=== PATIENT | female | born 1980 | race African-American/Black ===

== ENCOUNTER 2016-11-01 06:29 | Day surgery (SDC) | payer OTHER ==
[2016-09-28 16:11] VITALS: BMI 30.4
[2016-11-01] MEDS ORDERED: MIDAZOLAM HCL 2 MG/2 ML SINGLE DOSE VIAL ONE (07:48)
[2016-11-01] MEDS ORDERED: PROPOFOL 20 ML ONE ×3 (07:49→08:58)
[2016-11-01] MEDS ORDERED: DEXAMETHASONE SOD PHOSPHATE 4 MG/1 ML VIAL ONE ×2 (07:49→07:50)
[2016-11-01] MEDS ORDERED: LIDOCAINE HCL/PF 2% SDV 5ML VIAL ONE (07:54)
--- NOTE | 2016-11-01 08:15 | HP ---
Admitting History and Physical - Admission Chief Complaint: Heavy menses History of Present Illness: 36 yo Para 2, with h/o prolonged and heavy menses, is Pre op for endometrial ablation. History Source: Patient Limitations to Obtaining History: No Limitations - Past Medical History ...LMP: 09/12/16 ...: No ...Para: 2 - Past Surgical History Past Surgical History: Yes: None - Smoking History Smoking history: Never smoked Have you smoked in the past 12 months: No - Alcohol/Substance Use Hx Alcohol Use: No History of Substance Use: reports: None - Social History Usual Living Arrangement: Yes: Alone History of Recent Travel: No Home Medications - Allergies Allergies/Adverse Reactions: Allergies Allergy/AdvReac Type Severity Reaction Status Date / Time Penicillins Allergy Unknown Verified 05/25/13 08:52 shellfish derived Allergy Verified 05/27/13 17:50 milk AdvReac Mild Verified 09/28/16 16:11 - Home Medications Home Medications: Ambulatory Orders Cholecalciferol (Vitamin D3) [Vitamin D3] 50,000 unit PO WEEKLY 09/28/16 Ferrous Sulfate [Feosol] 325 mg PO DAILY 09/28/16 Family Disease History - Family Disease History Family History: Unremarkable Review of Systems - Review of Systems Constitutional: reports: No Symptoms Eyes: reports: No Symptoms HENT: reports: No Symptoms Neck: reports: No Symptoms Cardiovascular: reports: No Symptoms Respiratory: reports: No Symptoms Gastrointestinal: reports: No Symptoms Genitourinary: reports: No Symptoms Breasts: reports: No Symptoms Reported Musculoskeletal: reports: No Symptoms Integumentary: reports: No Symptoms Neurological: reports: No Symptoms Endocrine: reports: No Symptoms Hematology/Lymphatic: reports: No Symptoms Psychiatric: reports: No Symptoms Pain Intensity: 0 Physical Examination Vital Signs: Vital Signs Temperature 97.6 F 11/01/16 06:58 Pulse Rate 89 11/01/16 06:58 Respiratory Rate 20 11/01/16 06:58 Blood Pressure 127/80 11/01/16 06:58 O2 Sat by Pulse Oximetry (%) 98 11/01/16 06:58 Constitutional: Yes: Well Nourished Eyes: Yes: Conjunctiva Clear HENT: Yes: Atraumatic Neck: Yes: Supple, Trachea Midline Cardiovascular: Yes: Regular Rate and Rhythm Respiratory: Yes: Regular, CTA Bilaterally Gastrointestinal: Yes: Normal Bowel Sounds Neurological: Yes: Alert, Oriented ...Motor Strength: WNL Psychiatric: Yes: Alert, Oriented Problem List - Problems (1) Menorrhagia with regular cycle Code(s): N92.0 - EXCESSIVE AND FREQUENT MENSTRUATION WITH REGULAR CYCLE Assessment/Plan Menorrhagia Pre op for Hysteroscopic endometrial ablation Consent signed Anesthesia to see patient
--- NOTE | 2016-11-01 08:16 | OP ---
Operative Note - Note: Operative Date: 11/01/16 Pre-Operative Diagnosis: Menorrhagia Operation: Hysteroscopic endometrial ablation Post-Operative Diagnosis: Same as Pre-op Surgeon: Rochelle Ordaz Anesthesia: General Estimated Blood Loss (mls): 5 Operative Report Dictated: Yes
[2016-11-01] MEDS ORDERED: ACETAMINOPHEN INJECTION 100 ML IVPB ONE (09:31)
[2016-11-01] MEDS ORDERED: ONDANSETRON 4 MG/2 ML VIAL IVPUSH PRN (10:07)
[2016-11-01] MEDS ORDERED: IBUPROFEN 800 MG/8 ML IJ IVPB PRN (10:07)
[2016-11-01] MEDS ORDERED: oxyCODONE HCL 5 MG TABLET PO PRN (10:07)
[2016-11-01 12:41] VITALS: BP 119/73; PULSE 92; TEMP 98.2
--- NOTE | 2016-12-12 21:06 | OP ---
DATE OF OPERATION: 11/01/2016 PREOPERATIVE DIAGNOSIS: Menorrhagia. POSTOPERATIVE DIAGNOSIS: Menorrhagia. PROCEDURE: Hysteroscopic endometrial ablation. SURGEON: Rochelle Ordaz MD ANESTHESIA: General. COMPLICATION: None. ESTIMATED BLOOD LOSS: 5 mL. PROCEDURE: The patient was taken to the operating room, where general anesthesia was administered. Patient was then placed in lithotomy position. She was then prepped and draped in appropriate sterile fashion. A weighted speculum was placed in the vagina. The anterior lip of the cervix was grasped with a single-tooth tenaculum. Then the hysteroscope was then inserted into the uterine cavity. The machine was then activated and hysteroscopy started and the cavity was visualized. There was no fibroid noted, no polyps noted. Upon completion of the hysteroscopy, the nurse pushed the button to start the ablation procedure. Then appropriate of the cervix was obtained using 2 Sweethearts to the posterior lip of the cervix and 2 wet gauzes placed on the posterior vagina. Once procedure started and the temperature adriano, a blanching of the cavity was noted. At the end of the procedure, the instruments were removed. The patient was taken out of lithotomy position. She was taken to PACU in stable condition. ROCHELLE ORDAZ M.D. [id number] MTDD
== END 2016-11-01 12:45 | disposition home or self-care (01) ==
LOC: JASU-SURG 06:29
PROVIDERS: ATTEND Obstetrics & Gynecology
PROC: 0U5B8ZZ Destruction of Endometrium, Via Natural or Artificial Opening Endoscopic (ICD-10-PCS; principal; 2016-11-01 08:00)
DX: N92.0 Excessive and frequent menstruation with regular cycle (principal)
CPT/HCPCS: 84703; 94760

== ENCOUNTER → 2018-01-10 | Day surgery (SDC) | payer OTHER ==
--- NOTE | 2018-01-11 16:34 | PATH ---
Cytology Non-Gynecological Report Patient Name: HEENA FAGAN [facility]. Rec. #: [id number] /Age/Gender: 1980 (Age: 37) / F Account: [id number] Location: Taken: 01/10/2018 Received: 01/10/2018 Reported: 01/11/2018 Physicians: Allen Bonner M.D. Specimen(s) Received LEFT THYROID FNA Clinical History Left thyroid nodule, 2.8 x 1.69 x 1.18 cm Final Diagnosis THYROID, LEFT, FINE NEEDLE ASPIRATION: SATISFACTORY FOR EVALUATION. BETHESDA CLASS II: BENIGN. CYTOLOGIC FINDINGS ARE CONSISTENT WITH A BENIGN FOLLICULAR NODULE. SMALL FOLLICULAR CELLS, FEW MACROPHAGES AND COLLOID PRESENT. Electronically Signed Holly Oh M.D. Gross Description Received are eight direct smears, four of which are air-dried and Diff-Quik stained, and four of which are alcohol fixed and Pap stained. Also received is 20 ml of bloody formalin from which one cellblock is prepared.
== END | disposition home or self-care (01) ==
LOC: JRADIR 09:55
PROVIDERS: ATTEND Family Medicine
PROC: 0G9G3ZX Drainage of Left Thyroid Gland Lobe, Percutaneous Approach, Diagnostic (ICD-10-PCS; principal; 2018-01-10)
DX: E04.1 Nontoxic single thyroid nodule (principal)
CPT/HCPCS: 76942

== ENCOUNTER → 2018-01-29 | Day surgery (SDC) | payer OTHER ==
--- NOTE | 2018-01-30 13:02 | PATH ---
Cytology Non-Gynecological Report Patient Name: HEENA FAGAN [facility]. Rec. #: [id number] /Age/Gender: 1980 (Age: 38) / F Account: [id number] Location: RADIOLOGY Taken: 01/29/2018 Received: 01/29/2018 Reported: 01/30/2018 Physicians: Allen Bonner M.D. Specimen(s) Received RIGHT THYROID FNA Clinical History Right thyroid nodule, 1.28 x 0.87 x 1.10 cm Final Diagnosis THYROID, RIGHT, FINE NEEDLE ASPIRATION: SATISFACTORY FOR EVALUATION. BETHESDA CLASS II: BENIGN. CYTOLOGIC FINDINGS ARE CONSISTENT WITH A BENIGN FOLLICULAR NODULE WITH POST-HEMORRHAGIC CHANGE. FOLLICULAR CELLS WITH FOCAL REACTIVE CHANGES IN A BACKGROUND OF COLLOID AND SCATTERED HEMOSIDERIN-LADEN MACROPHAGES. Electronically Signed Holly Oh M.D. Gross Description Received are eight direct smears, four of which are air-dried and Diff-Quik stained, and four of which are alcohol fixed and Pap stained. Also received is 20 ml of bloody formalin from which one cellblock is prepared.
== END | disposition home or self-care (01) ==
LOC: JRADIR 09:10
PROVIDERS: ATTEND Family Medicine
PROC: 0G9H3ZX Drainage of Right Thyroid Gland Lobe, Percutaneous Approach, Diagnostic (ICD-10-PCS; principal; 2018-01-29)
DX: E04.1 Nontoxic single thyroid nodule (principal)
CPT/HCPCS: 76942; 88173; 88305-TC

== ENCOUNTER 2018-10-14 05:06 | Day surgery (SDC) | payer OTHER ==
[2018-10-14] MEDS ORDERED: IBUPROFEN 800 MG/8 ML IJ IVPB PRN (07:21)
[2018-10-14] MEDS ORDERED: ACETAMINOPHEN 325 MG TABLET (FP) PO PRN (07:21)
[2018-10-14] MEDS ORDERED: IBUPROFEN 600 MG TABLET (FP) PO PRN (07:21)
--- NOTE | 2018-10-14 07:21 | HP ---
History & Physical Update - History History: No Change - Physical Physical: No Change - Assessment Assessment: No Change - Plan Plan: No Change (No change in HP)
[2018-10-14] MEDS ORDERED: LACTATED RINGERS SOLUTION 1,000 ML IV SCH ×2 (07:30→13:45)
[2018-10-14] MEDS ORDERED: MIDAZOLAM HCL 2 MG/2 ML SINGLE DOSE VIAL ONE (12:06)
[2018-10-14] MEDS ORDERED: PROPOFOL 20 ML ONE (12:35)
[2018-10-14] MEDS ORDERED: CLINDAMYCIN 600 MG PREMIX BAG IVPB ONE (12:42)
[2018-10-14] MEDS ORDERED: LIDOCAINE HCL/PF 2% SDV 5ML VIAL ONE (12:48)
[2018-10-14] MEDS ORDERED: KETOROLAC TROMETHAMINE 30 MG/1 ML VIAL ONE (12:48)
[2018-10-14] MEDS ORDERED: CLINDAMYCIN PHOSPHATE 600 MG/4 ML VIAL ONE (12:48)
[2018-10-14] MEDS ORDERED: DEXAMETHASONE SOD PHOSPHATE 4 MG/1 ML VIAL ONE (12:48)
[2018-10-14] MEDS ORDERED: oxyCODONE HCL 5 MG TABLET PO PRN (13:32)
[2018-10-14] MEDS ORDERED: ONDANSETRON 4 MG/2 ML VIAL IVPUSH PRN (13:32)
[2018-10-14 16:00] LABS: HEMATOCRIT 28.1 % (32.4-45.2); HEMOGLOBIN 9.3 GM/dL (10.7-15.3); MCH 29.5 pg (25.7-33.7); MCHC 33.3 g/dl (32.0-36.0); MEAN CELL VOLUME 88.8 fl (80-96); MEAN PLT VOLUME 7.2 fl (7.5-11.1); PLATELET COUNT 442 K/MM3 (134-434); RBC 3.16 M/mm3 (3.60-5.2); RDW 15.7 % (11.6-15.6)
[2018-10-14 19:03] VITALS: TEMP 98
[2018-10-14 19:13] VITALS: BP 124/77; PULSE 89
--- NOTE | 2018-10-17 19:31 | PATH ---
Surgical Pathology Report Patient Name: HEENA FAGAN [facility]. Rec. #: [id number] /Age/Gender: 1980 (Age: 38) / F Account: [id number] Location: [facility] Taken: 10/14/2018 Received: 10/14/2018 Reported: 10/17/2018 Physicians: Victoria Harris M.D. Specimen(s) Received A: FIBROIDS TISSUE B: FIBROID Clinical History Fibroid tissue rule out cancer Intraoperative Consult Diagnosis Benign endometrial and smooth muscle. No definitive malignancy. Neelima Neves M.D., 10/14/2018 Final Diagnosis A. FIBROID TISSUE, RULE OUT CANCER, EXCISION: BENIGN SMOOTH MUSCLE SMOOTH MUSCLE WITH FOCAL MYXOID CHANGE AND PROMINENT VASCULARITY. THE OVERLYING ENDOMETRIAL TISSUE SHOW ATROPHIC, FOCAL HEMORRHAGIC EROSION WITH ACUTE INFLAMMATION. B. FIBROID, EXCISION: LEIOMYOMA (21 GRAMS) WITH MYXOID CHANGE AND PROMINENT VASCULARITY. THE OVERLYING WEAKLY PROLIFERATIVE ENDOMETRIAL TISSUE WITH FOCAL PAPILLARY CHANGE, HEMORRHAGE, EROSION, ACUTE AND CHRONIC INFLAMMATION. Electronically Signed Kristy Neves M.D. Gross Description A. Received fresh labeled "fibroid tissue rule out cancer," is a 4.7 x 3.2 x 0.6 cm portion of romero-red soft tissue. The specimen displays focal brown blood. A electronics parts sales representative section is submitted for frozen section. The specimen is serially sectioned and entirely submitted in 6 cassettes as follows: 1-frozen section residue; 3-5-giitbouqh of specimen. B. Received in formalin labeled "fibroids," is a 21 g, 6.5 x 6.0 x 1.5 cm aggregate of multiple romero, irregular, firm to rubbery tissue fragments, possibly consistent with portions of a fibroid. Stockroom Helper sections are submitted in 7 cassettes. DL/10/14/2018 saudi/10/14/2018
--- NOTE | 2018-10-22 15:08 | OP ---
Operative Note - Note: Operative Date: 10/14/18 Pre-Operative Diagnosis: anemia. Menorrhagia. Leiomyomatous uterus Operation: Vaginal myomectomy Findings: frozen section showed myoma Post-Operative Diagnosis: Same as Pre-op Surgeon: Victoria Harris Anesthesia: General Estimated Blood Loss (mls): 100 Operative Report Dictated: Yes
--- NOTE | 2018-10-22 16:06 | OP ---
DATE OF OPERATION: 10/14/2018 PREOPERATIVE DIAGNOSES: Anemia. Menorrhagia. Leiomyomatous uterus. POSTOPERATIVE DIAGNOSIS: Protruding vaginal myoma. OPERATION: Vaginal myomectomy. SURGEON: Victoria Harris MD ANESTHESIA: General. ESTIMATED BLOOD LOSS: 100 mL. PROCEDURE: Patient was taken to the operating room, placed in dorsal lithotomy position, prepped and draped in the usual sterile fashion. A timeout was performed in accordance with hospital regulation. Speculum was placed in the vagina and a large, 4-cm leiomyoma was seen coming out of the cervix into the vagina. A vaginal myomectomy was performed. Endometrial tissue was seen, possible inversion of the uterus. Myoma was submitted for frozen section which came back a leiomyoma with endometrium. Hemostasis was achieved using cautery of the myoma and packing was then done. Hemostasis was achieved. All instruments were then removed. Patient tolerated procedure well. Was taken to recovery in stable condition. VICTORIA HARRIS M.D. MICHAEL/[id number]
== END 2018-10-14 17:05 | disposition home or self-care (01) ==
LOC: JASU-SURG 05:06
PROVIDERS: ATTEND Obstetrics & Gynecology
PROC: 0UB97ZZ Excision of Uterus, Via Natural or Artificial Opening (ICD-10-PCS; principal; 2018-10-14 11:30)
DX: N92.0 Excessive and frequent menstruation with regular cycle (principal); D64.9 Anemia, unspecified; D28.1 Benign neoplasm of vagina
CPT/HCPCS: 36415; 84703; 85027; 86850; 86900; 86901; 88305-TC; 88307-TC; 88331-TC; 94760

== ENCOUNTER 2018-10-24 04:59 | Inpatient (IN) | payer OTHER ==
[2018-10-24] MEDS ORDERED: CEFAZOLIN 2 GM in DEXTROSE 5%-WATER - 100 ML IVPB ONE (07:17)
[2018-10-24] MEDS ORDERED: LIDOCAINE HCL/PF 2% SDV 5ML VIAL ONE (07:25)
[2018-10-24] MEDS ORDERED: DEXAMETHASONE SOD PHOSPHATE 4 MG/1 ML VIAL ONE (07:25)
[2018-10-24] MEDS ORDERED: ceFAZolin SODIUM 1 GM VIAL ONE (07:25)
[2018-10-24] MEDS ORDERED: SODIUM CHLORIDE 0.9% P/F 10 ML VIAL IJ ONE (07:25)
[2018-10-24] MEDS ORDERED: PROPOFOL 20 ML ONE ×2 (07:27→08:36)
[2018-10-24] MEDS ORDERED: SUCCINYLCHOLINE CHLORIDE 200 MG/10 ML VIAL ONE (07:27)
[2018-10-24] MEDS ORDERED: MIDAZOLAM HCL 2 MG/2 ML SINGLE DOSE VIAL ONE (07:27)
[2018-10-24] MEDS ORDERED: ROCURONIUM BROMIDE 50 MG/5 ML VIAL ONE (07:27)
--- NOTE | 2018-10-24 07:53 | HP ---
History & Physical Update - History History: No Change - Physical Physical: No Change - Assessment Assessment: No Change - Plan Plan: No Change (no change since visit with Dr Harris on 10/22/18)
[2018-10-24] MEDS ORDERED: PHENAZOPYRIDINE HCL 100 MG TABLET (FP) PO ONE (08:00)
[2018-10-24] MEDS ORDERED: DEXAMETHASONE SOD PHOSPHATE/PF 10 MG/ML SDV ONE (08:08)
[2018-10-24] MEDS ORDERED: BUPIVACAINE HCL/PF 0.25% (2.5MG/ML) 10 ML VIAL ONE (08:09)
[2018-10-24] MEDS ORDERED: IBUPROFEN 800 MG/8 ML IJ IVPB PRN (08:09)
[2018-10-24] MEDS ORDERED: DESFLURANE GAS 240 ML BOTTLE IH ONE (08:09)
[2018-10-24] MEDS ORDERED: KETAMINE HCL 200 MG/20 ML VIAL ONE (08:12)
[2018-10-24] MEDS ORDERED: ceFAZolin SODIUM 1 GM VIAL IVPB ONE (08:36)
[2018-10-24] MEDS ORDERED: NEOSTIGMINE METHYLSULFATE 0.5 MG/ML - 10 ML MDV ONE (09:48)
[2018-10-24] MEDS ORDERED: GLYCOPYRROLATE 0.2 MG/1 ML VIAL ONE (09:48)
[2018-10-24] MEDS ORDERED: KETOROLAC TROMETHAMINE 30 MG/1 ML VIAL ONE (09:48)
--- NOTE | 2018-10-24 10:55 | OP ---
Operative Note - Note: Operative Date: 10/24/18 Pre-Operative Diagnosis: Menorrhagia. Leiomyoma of uterus. Dysfunctional uterine bleeding. Anemia Operation: Total abdominal hysterectomy, bilateral salpingectomy Post-Operative Diagnosis: Same as Pre-op Surgeon: Victoria Harris Breakfast Attendant: Lyudmila Lindquist Anesthesiologist/EQUAL OPPORTUNITY SPECIALIST: Ralph Hart Anesthesia: General Specimens Removed: Uterus with mass. Bilateral fallopian tubes Estimated Blood Loss (mls): 500 Drains, Volume Out (mls): 200 (Delgado) Fluid Volume Replaced (mls): 1,700 Operative Report Dictated: Yes
[2018-10-24] MEDS ORDERED: HYDROmorphone *PCA* 10MG/50ML DISP.SYRIN PCA ONE ×2 (10:56→11:00)
--- NOTE | 2018-10-24 10:57 | SURG ---
Surgery Digital Communications Manager Note Digital Communications Manager: Lyudmila Lindquist PA-C Date of Service: 10/24/18 Diagnosis: Menorrhagia anemia Leiomyoma of uterus Procedure: Total abdominal hysterectomy, bilateral salpingectomy I was present for the entirety of the operative procedure. For further detail, please refer to operative report. Visit type - Case Type Case Type: Scheduled - Emergency Emergency Visit: No - New patient This patient is new to me today: Yes Date on this admission: 10/24/18
[2018-10-24] MEDS ORDERED: ONDANSETRON 4 MG/2 ML VIAL IVPUSH PRN (11:37)
[2018-10-24] MEDS ORDERED: LACTATED RINGERS SOLUTION 1,000 ML IV SCH (11:45)
[2018-10-24] MEDS ORDERED: HYDROmorphone *PCA* 10MG/50ML DISP.SYRIN PCA SCH (11:45)
--- NOTE | 2018-10-24 12:04 | OP ---
DATE OF OPERATION: 10/24/2018 PREOPERATIVE DIAGNOSES: Anemia, menorrhagia, leiomyomatous uterus, submucosal myoma, intramural myomas, pelvic pain. OPERATION: Total abdominal hysterectomy and bilateral salpingectomy. SURGEON: Victoria Harris MD IN PROCESSING INSTRUCTOR: JEANE Wiggins ANESTHESIA: General. FINDINGS: Uterus about 15 cm in size. PROCEDURE: Patient was taken to the operating room, placed in supine position, prepped and draped in the usual sterile fashion. Timeout was performed in accordance with hospital regulation. Pfannenstiel skin incision was made through the patient's previous scar. Cautery was then used to go through the layers of abdominal wall to the level of the fascia. Fascia was cut in the midline, and cautery was then used to open the fascia in fashion. An was then used to bluntly and sharply dissect the rectus muscle off the fascia. Muscles split in the midline. Peritoneal cavity was then entered and carried upward and downward. Numerous adhesions were seen. Bowel was stuck to the cul-de-sac, then the posterior aspect of the uterus. Enterolysis was then performed. Bowel was taken down. Uterus was exteriorized. Vesicouterine reflection was entered, and bladder was bluntly dissected out of the field. Patient was found to have numerous adhesions. Endometriosis was seen, mostly on the right, and bowel was stuck in the cul-de-sac. A large mass was seen protruding out of the cervix and the uterus into the vagina. Round ligaments identified and cut and clamped. Utero-ovarian ligaments identified and clamped and cut. Uterine arteries identified bilaterally and clamped and cut, and a large, 8-cm mass was seen in the lower segment. The lower segment was then entered and cut, and uterus was then removed. Mass had filled the lower segment of the uterus as well as the cervix and dilated it, about 9-10 cm. Cervix was then identified, and cardinal ligaments identified and clamped and cut down to the level of the cervix, and the LigaSure was then used to cut the vagina and remove the cervical stump away from the vagina and submitted to Pathology. Bilateral fallopian tubes were identified, and LigaSure was then used to cut the bilateral fallopian tubes and submitted to Pathology. Hemostasis was achieved using cautery and free ties. The bowel was seen still stuck to the cul-de-sac. Vagina was then closed using 0 Vicryl suture in a continuous locking fashion. Interceed was placed over the cuff. All pedicles were identified and found to be hemostatic. Peritoneum was then closed using 0 Vicryl suture in continuous fashion. Muscles approximated in midline using 0 Vicryl suture. Fascia was then closed using 0 Vicryl suture in 2 parts. Subcutaneous was closed in 2 layers using 2-0 Vicryl suture, and then, skin was closed using 3-0 Vicryl in subcuticular fashion. Wound was washed and dressed, Steri-Strips placed. The patient had tolerated the procedure well. Estimated blood loss was 500 mL. Pad count was noted to be normal. Abdominal sweep had been done. Allen [id number]
[2018-10-24] MEDS ORDERED: CEFAZOLIN 1 GM/D5W 1 GM/50 ML BAG IVPB SCH (16:00)
[2018-10-24] MEDS: CEFAZOLIN 1 GM/D5W 1 GM/50 ML BAG IVPB SCH (18:14)
[2018-10-24 19:48] LABS: HEMATOCRIT 26.3 % (32.4-45.2); HEMOGLOBIN 8.9 GM/dL (10.7-15.3); LYMPH % 4.4 % (8-40); MCH 30.2 pg (25.7-33.7); MCHC 33.7 g/dl (32.0-36.0); MEAN CELL VOLUME 89.9 fl (80-96); MEAN PLT VOLUME 7.9 fl (7.5-11.1); MONO % 2.6 % (3.8-10.2); PLATELET COUNT 333 K/MM3 (134-434); RBC 2.93 M/mm3 (3.60-5.2); RDW 15.4 % (11.6-15.6); WHITE BLOOD COUNT 12.7 K/mm3 (4.0-10.0)
[2018-10-24 20:15] LABS: ANION GAP 11 MMOL/L (8-16); BLOOD UREA NITROGEN 8 mg/dL (7-18); CALCIUM 8.5 mg/dL (8.5-10.1); CHLORIDE 105 mmol/L (98-107); CO2 22 mmol/L (21-32); CREATININE 1.2 mg/dL (0.55-1.3); GLUCOSE,RANDOM 197 mg/dL (74-106); POTASSIUM 4.3 mmol/L (3.5-5.1); SODIUM 138 mmol/L (136-145)
[2018-10-24 20:55] LABS: ANISOCYTOSIS 2+; MACROCYTOSIS 1+; PLATELET ESTIMATE ADEQUATE
[2018-10-24] MEDS: DOCUSATE SODIUM 100 MG CAPSULE (FP) PO SCH (23:04)
[2018-10-25] MEDS: CEFAZOLIN 1 GM/D5W 1 GM/50 ML BAG IVPB SCH (02:35)
[2018-10-25 06:09] LABS: BASO % 0.1 % (0-2.0); HEMATOCRIT 20.3 % (32.4-45.2); LYMPH % 10.7 % (8-40); MCH 30.4 pg (25.7-33.7); MCHC 34.4 g/dl (32.0-36.0); MEAN CELL VOLUME 88.5 fl (80-96); MEAN PLT VOLUME 7.3 fl (7.5-11.1); MONO % 8.4 % (3.8-10.2); NEUT % 80.8 % (42.8-82.8); PLATELET COUNT 270 K/MM3 (134-434); RBC 2.29 M/mm3 (3.60-5.2); RDW 15.2 % (11.6-15.6); WHITE BLOOD COUNT 11.5 K/mm3 (4.0-10.0)
[2018-10-25 07:08] LABS: ANION GAP 7 MMOL/L (8-16); BLOOD UREA NITROGEN 7 mg/dL (7-18); CALCIUM 8.2 mg/dL (8.5-10.1); CHLORIDE 107 mmol/L (98-107); CO2 27 mmol/L (21-32); CREATININE 0.9 mg/dL (0.55-1.3); GLUCOSE,RANDOM 116 mg/dL (74-106); SODIUM 141 mmol/L (136-145)
--- NOTE | 2018-10-25 07:23 | PN ---
Progress Note (SOAP) - Subjective Chief Complaint: Pt without pain and doing well - Current Medications Current Medications: Active Medications Docusate Sodium (Colace -) 100 mg PO TID [facility] Last Admin: 10/24/18 23:04 Dose: 100 mg Enoxaparin Sodium (Lovenox -) 40 mg SQ DAILY [facility] Ferrous Sulfate (Feosol -) 325 mg PO DAILY [facility] Lactated Ringer's (Lactated Ringers Solution) 1,000 mls @ 125 mls/hr IV ASDIR [facility] Last Admin: 10/24/18 18:18 Dose: 125 mls/hr Ibuprofen (Caldolor Injection -) 800 mg IVPB Q8H PRN PRN Reason: FEVER Ondansetron HCl (Zofran Injection) 4 mg IVPUSH Q6H PRN PRN Reason: NAUSEA AND/OR VOMITING Oxycodone HCl (Roxicodone -) 5 mg PO Q4H PRN PRN Reason: PAIN LEVEL 4 - 6 Oxycodone HCl (Roxicodone -) 10 mg PO Q4H PRN PRN Reason: PAIN LEVEL 7 - 10 Simethicone (Mylicon -) 80 mg PO Q4H PRN PRN Reason: GAS - Objective Vital Signs: Vital Signs Temperature 98.8 F 10/25/18 06:00 Pulse Rate 90 10/25/18 06:00 Respiratory Rate 20 10/25/18 06:00 Blood Pressure 105/59 L 10/25/18 06:00 O2 Sat by Pulse Oximetry (%) 100 10/24/18 13:15 Constitutional: Yes: Well Nourished, No Distress Gastrointestinal: Yes: WNL, Soft Breast(s): Yes: WNL Musculoskeletal: Yes: WNL Extremities: Yes: WNL Wound/Incision: Yes: Clean/Dry, Well Approximated, Dressing Removed Neurological: Yes: WNL, Alert, Oriented Labs Lab Results: CBC, BMP 10/25/18 05:56 10/25/18 05:56 Assessment/Plan POD 1 SP Hysterectomy Plan OOB
[2018-10-25] MEDS ORDERED: PCA PUMP KEY 1 EACH EACH ONE (07:51)
[2018-10-25] MEDS ORDERED: oxyCODONE HCL 5 MG TABLET PO PRN (08:09)
--- NOTE | 2018-10-25 08:26 | PN ---
Progress Note (short form) - Note Progress Note: Anesthesia POD#1 S/P ERICA/BSO under GA and Dilaudid MARINE DRAFTER, TAP Block VSS,no N/V,pain is under control,legs have full strength. No comlication to anesthesia seen. Rita Cole MD.
[2018-10-25] MEDS: SIMETHICONE 80 MG TAB.CHEW (FP) PO PRN ×2 (11:36→14:38)
[2018-10-25] MEDS: oxyCODONE HCL 5 MG TABLET PO PRN ×2 (11:36→14:38)
[2018-10-25] MEDS: ENOXAPARIN NA (PORCINE) 40 MG/0.4 ML DISP.SYRIN SQ SCH (11:37)
[2018-10-25] MEDS: DOCUSATE SODIUM 100 MG CAPSULE (FP) PO SCH ×4 (14:30→23:00)
[2018-10-25] MEDS: FERROUS SO4 325 MG TABLET (FP) PO SCH (16:53)
[2018-10-25 18:40] LABS: BASO % 0.3 % (0-2.0); EOS % 0.5 % (0-4.5); HEMATOCRIT 21.6 % (32.4-45.2); HEMOGLOBIN 7.5 GM/dL (10.7-15.3); LYMPH % 23.2 % (8-40); MCH 31.4 pg (25.7-33.7); MCHC 34.9 g/dl (32.0-36.0); MEAN CELL VOLUME 90.1 fl (80-96); MEAN PLT VOLUME 7.7 fl (7.5-11.1); MONO % 6.9 % (3.8-10.2); NEUT % 69.1 % (42.8-82.8); PLATELET COUNT 317 K/MM3 (134-434); RDW 15.5 % (11.6-15.6); WHITE BLOOD COUNT 10.1 K/mm3 (4.0-10.0)
[2018-10-25] MEDS ORDERED: BISACODYL 10 MG SUPP.RECT RC PRN (19:44)
[2018-10-26] MEDS: SIMETHICONE 80 MG TAB.CHEW (FP) PO PRN (01:06)
[2018-10-26] MEDS: DOCUSATE SODIUM 100 MG CAPSULE (FP) PO SCH (05:14)
[2018-10-26] MEDS: oxyCODONE HCL 5 MG TABLET PO PRN (05:26)
[2018-10-26 07:15] LABS: BASO % 0.4 % (0-2.0); EOS % 1.1 % (0-4.5); HEMATOCRIT 20.3 % (32.4-45.2); LYMPH % 25.9 % (8-40); MCH 30.3 pg (25.7-33.7); MCHC 34.2 g/dl (32.0-36.0); MEAN CELL VOLUME 88.5 fl (80-96); MEAN PLT VOLUME 7.5 fl (7.5-11.1); MONO % 7.9 % (3.8-10.2); NEUT % 64.7 % (42.8-82.8); PLATELET COUNT 267 K/MM3 (134-434); RBC 2.29 M/mm3 (3.60-5.2); RDW 15.6 % (11.6-15.6); WHITE BLOOD COUNT 7.9 K/mm3 (4.0-10.0)
[2018-10-26 07:38] LABS: HEMOGLOBIN 6.9 GM/dL (10.7-15.3)
[2018-10-26 09:15] VITALS: BP 115/72; PULSE 105; TEMP 98.9
[2018-10-26] MEDS: FERROUS SO4 325 MG TABLET (FP) PO SCH (10:04)
[2018-10-26] MEDS: ENOXAPARIN NA (PORCINE) 40 MG/0.4 ML DISP.SYRIN SQ SCH (10:04)
--- NOTE | 2018-10-26 10:12 | DS ---
"Physical Exam-SHIP YARD ELECTRICAL PERSON Vital Signs: Vital Signs Temperature 98.9 F 10/26/18 09:12 Pulse Rate 105 H 10/26/18 09:12 Respiratory Rate 20 10/26/18 09:12 Blood Pressure 115/72 10/26/18 09:12 O2 Sat by Pulse Oximetry (%) 100 10/24/18 13:15 Constitutional: Yes: Well Nourished, No Distress Neck: Yes: WNL Cardiovascular: Yes: WNL, Regular Rate and Rhythm Respiratory: Yes: WNL, CTA Bilaterally Gastrointestinal: Yes: WNL, Soft Breast(s): Yes: WNL Extremities: Yes: WNL Edema: No Wound/Incision: Yes: Clean/Dry, Well Approximated, Dressing Removed Psychiatric: Yes: WNL, Alert, Oriented Labs: CBC, BMP 10/26/18 06:00 10/25/18 05:56 Discharge Summary Reason For Visit: FIBROIDS/ABNORMAL BLEEDING Procedures: Principal: Hysterectomy Total. bilateral salpingectomy Hospital Course: Unremarkable Condition: Good - Instructions Diet, Activity, Other Instructions: Dr. Victoria Harris Corrosion Prevention Metal Sprayer discharge instructions Physical activity Resume your normal everyday activity as tolerated no heavy lifting or exercise until seen by your surgeon. You may walk unlimited brian of and climb stairs. You may resume driving the car when you feel safe and comfortable behind the wheel. No sexual activity as instructed by Dr. Harris. Wound care If you have a bandage, leave it on, and keep dry for 72hrs. After that time discard the outer bandage. If they are tapes on the skin under the out of bandage leave them in place. They will peel off in the next 7 to 10 days. Do Not Peel them off. You may shower 3 days after surgery but do not submerge the incision. If there are tapes present on the skin, you may shower over them. Do not apply lotion or ointments to incision. Diet There are no dietary restrictions. Eat healthy, high-fiber foods. Drink 6 to 8 glasses of liquid each day. This will assist in keeping your bowels are regular. Pain management You may take Tylenol or acetaminophen or Ibuprofen (for example, Motrin, Advil etc.) from my pain prescription medication is ordered should be taken as prescribed for moderate to severe pain. Call Dr. Harris for any of the following: Severe pain not relieved by medication Fever of 101 or higher Excessive bleeding or drainage on dressing Inability to urinate If you experience any chest pain or shortness of breath please seek emergency treatment immediately. Call the office at [phone] for an appointment in seven days. This report was requested by: Lyudmila Anders | Reference #: [id number] Disposition: HOME - Home Medications Comprehensive Discharge Medication List: Ambulatory Orders Ferrous Sulfate [Feosol] 325 mg PO DAILY 09/28/16 Tramadol HCl 50 mg PO PRN PRN 10/09/18 Docusate Sodium [Colace -] 100 mg PO DAILY PRN #30 capsule 10/24/18 Oxycodone HCl/Acetaminophen [Percocet 5-325 mg Tablet] 1 - 2 tab PO Q4H PRN #20 tablet MDD 6 10/24/18"
--- NOTE | 2018-10-31 10:48 | PATH ---
Surgical Pathology Report Patient Name: HEENA FAGAN [facility]. Rec. #: [id number] /Age/Gender: 1980 (Age: 38) / F Account: [id number] Location: [facility] OBS/PROPERTY CONSULTANT Taken: 10/24/2018 Received: 10/24/2018 Reported: 10/31/2018 Physicians: Victoria Harris M.D. Specimen(s) Received A: UTERUS AND CERVIX, ENDOMETRIAL MASS B: LEFT FALLOPIAN TUBE C: RIGHT FALLOPIAN TUBE Clinical History Fibrous, abnormal bleeding Final Diagnosis A. UTERUS, CERVIX, ENDOMETRIAL MASS, HYSTERECTOMY: POLYPOID ADENOMYOMA. ADENOMYOSIS. SECRETORY TYPE ENDOMETRIUM. CERVIX WITH ACUTE AND CHRONIC INFLAMMATION, AND SQUAMOUS METAPLASIA. Comment: The endometrial mass showed benign endometrial glands with focal cystic change and marked tubal metaplasia, with predominantly leiomyomatous smooth muscle proliferation. No significant cellular or architectural atypia seen in the glanular component. Variable thick walled blood vessels, focal area of hemorrhage, and acute inflammation are seen in the leiomyomatous smooth muscle component. Rare appreciable mitosis noted. No significant cytologic atypia seen. The above findings are consistent with an adenomyoma. In light of the findings in the hysterectomy specimen, prior biopsy material ([id number]) was reviewed and is best characterized as a portion of adenomyoma. Intradepartmental case reviewed with concordance on diagnosis, 10/31/2018. B. LEFT FALLOPIAN TUBE, SALPINGECTOMY: FALLOPIAN TUBE WITH ENDOMETRIOSIS. C. RIGHT FALLOPIAN TUBE, SALPINGECTOMY: FALLOPIAN TUBE WITH PARATUBAL CYST, ENDOMETRIOSIS, AND FIBROTIC ADHESION. Electronically Signed Kristy Neves M.D. Gross Description A. Received in formalin labeled "uterus, cervix, endometrial mass," is a 528 g supracervically amputated uterus with no attached adnexa. There is a 7.5 x 7.5 x 6.0 cm romero-brown, bulging endometrial nodule extending through the cervical margin of resection at the inferior aspect of the specimen and visible from the exterior. The uterus measures 8.7 cm from left to right, 8.0 cm from superior to inferior and 7.5 cm from anterior to posterior. The serosa is romero and smooth on the posterior aspect and displays adhesions on the anterior aspect. The endometrial cavity measures 5.5 cm in length and 4.6 cm from cornu to cornu. The large bulging endometrial mass is attached to the posterior/inferior aspect of the uterus. The mass appears to focally invade superficially into the myometrium. The cut surface of the mass displays romero-red parenchyma with foci of brown hemorrhagic cysts. The endometrium is romero-red and lush, measuring up to 0.5 cm in thickness. The myometrium is romero-pink and focally measures up to 5.5 cm in thickness. There is a 4 cm in length unoriented portion of cervix separately received within the same container. Also separately received within the same container is a 4.5 x 3.8 x 1.4 cm unoriented portion of ectocervix. The ectocervix is romero, smooth and glistening. Design Manager sections are submitted in 22 cassettes as follows: 1-anterior lower uterine segment (at resection margin); 2-posterior lower uterine segment (at resection margin); 3-left parametrium; 4-right parametrium; 9-9-qssflbzg endomyometrium; 7-8-one full-thickness bisected section of posterior endomyometrium from fundus (endometrium in cassette 7; serosa in cassette 8); 7-38-agcufkqdqnr mass; 84-14-bmeremfckou mass at attachment site to myometrium; 01-99-urqmbcahld received cervix; 22-separately received ectocervix. B. Received in formalin labeled "left fallopian tube," is a 3 cm in length fimbriated fallopian tube. The outer surface is romero-caceres and smooth. Sectioning reveals an unremarkable lumen. Design Manager sections are submitted in 2 cassettes as follows: 1-fimbria; 2-cross section of fallopian tube. C. Received in formalin labeled "right fallopian tube," is a 3.7 cm in length fimbriated portion of fallopian tube. The outer surface is romero vale with focal attached paratubal cysts and adhesions. Sectioning reveals an unremarkable lumen. Design Manager sections are submitted in 2 cassettes as follows: 1-fimbria; 2-cross sections of fallopian tube. 10/25/2018 [facility]10/25/2018
== END 2018-10-26 11:35 | disposition home or self-care (01) | DRG 743 ==
LOC: JASUSAT 04:59 → JSAMEDAYSX 08:09 → J3W 13:14
PROVIDERS: ADMIT Obstetrics & Gynecology; ATTEND Obstetrics & Gynecology
PROC: 0UT70ZZ Resection of Bilateral Fallopian Tubes, Open Approach (ICD-10-PCS; 2018-10-24)
PROC: 0UT90ZZ Resection of Uterus, Open Approach (ICD-10-PCS; principal; 2018-10-24 08:00)
DX: D25.1 Intramural leiomyoma of uterus (principal); D25.0 Submucous leiomyoma of uterus; D64.9 Anemia, unspecified; R10.2 Pelvic and perineal pain; N92.0 Excessive and frequent menstruation with regular cycle; N93.8 Other specified abnormal uterine and vaginal bleeding
CPT/HCPCS: 36415; 80048; 85025; 88305-TC; 88307-TC; 88309-TC; 94010; 94760